=== PATIENT | male | born 1940 | race Caucasian/White ===

== ENCOUNTER → 2018-04-20 | Outpatient (CLI) | payer MEDICARE, MEDICAID ==
[~2018-04-20] MED LIST: FLONASEALLERGY NS; IPRATROPIUM BROM3 M1 IH; NEURONTIN300 MG/CAP PO; PRIL40 PO; SYNTHROID0.088 MG/T PO; SYNTHROID0.2 MG/TAB PO
== END ==
LOC: COL.RAD 08:03
DX: R93.3 Abnormal findings on diagnostic imaging of other parts of digestive tract (principal); R12 Heartburn; K59.00 Constipation, unspecified; R19.7 Diarrhea, unspecified; R11.0 Nausea
CPT/HCPCS: A9541

== ENCOUNTER 2018-04-21 09:47 | Day surgery (SDC) | payer MEDICARE, MEDICAID ==
[~2018-04-21] VITALS: Ht 175.3 cm; Wt 56.9 kg
[~2018-04-21 09:47] MED LIST changes: -FLONASEALLERGY NS; -NEURONTIN300 MG/CAP PO
[2018-04-21 10:13] VITALS: BP 127/61; PULSE 61; TEMP 97.5
[2018-04-21] MEDS ORDERED: NEURONTIN300 MG/CAP PO (10:42)
[2018-04-21] MEDS ORDERED: FLONASEALLERGY NS (10:43)
[2018-04-21 12:05] VITALS: BP 99/64; PULSE 67; TEMP 97.1
[2018-04-21 12:20] VITALS: BP 100/68; PULSE 65
[2018-04-21 12:35] VITALS: BP 117/82; PULSE 65
[2018-04-21 13:59] VITALS: BP 96/65; PULSE 72
== END 2018-04-21 13:05 | disposition home or self-care (01) ==
LOC: SDCO 09:47
DX: Z12.11 Encounter for screening for malignant neoplasm of colon (principal); R19.7 Diarrhea, unspecified; D12.5 Benign neoplasm of sigmoid colon; D12.0 Benign neoplasm of cecum; K57.30 Diverticulosis of large intestine without perforation or abscess without bleeding; K59.00 Constipation, unspecified; F17.210 Nicotine dependence, cigarettes, uncomplicated; Z79.51 Long term (current) use of inhaled steroids; Z90.49 Acquired absence of other specified parts of digestive tract; Z86.010 Personal history of colon polyps
CPT/HCPCS: J2250; J3010; J7030